=== PATIENT | female | born 1985 | race Caucasian/White ===

== ENCOUNTER 2020-05-23 17:38 | Emergency (ER) | payer OTHER ==
[~2020-05-23] VITALS: Ht 165.1 cm; Wt 56.7 kg
[2020-05-23 18:00] VITALS: BP 95/70
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
[2020-05-23] MEDS: Acetaminophen 500mg (ES) tab ORAL ONE (18:40)
[2020-05-23] MEDS: Methocarbamol 750mg tab ORAL ONE (18:40)
[2020-05-23] MEDS ORDERED: ROBAXIN-750750 MG PO (18:58)
[2020-05-23] MEDS ORDERED: LIDODERM700 M1 TOPIC (18:58)
[2020-05-23] MEDS ORDERED: TYLENOL EXTRA500 MG ORAL (18:58)
[2020-05-23 19:10] VITALS: BP 100/78
--- NOTE | 2020-05-23 19:10 | NUR ---
ER DISCHARGE NOTE: Patient is cleared to be discharged per ERMD, pt is aox4, on room air, with stable vital signs. pt was given dc and prescription instructions, pt was able to verbalize understanding, pt id band removed. pt is able to ambulate with steady gait. pt took all belongings.
== END 2020-05-23 19:10 | disposition home or self-care (01) ==
LOC: EMR 18:05
DX: S16.1XXA Strain of muscle, fascia and tendon at neck level, initial encounter (principal); S70.02XA Contusion of left hip, initial encounter; F07.81 Postconcussional syndrome; T14.8XXA Other injury of unspecified body region, initial encounter; V43.52XA Car driver injured in collision with other type car in traffic accident, initial encounter; Y93.9 Activity, unspecified; Y92.411 Interstate highway as the place of occurrence of the external cause
CPT/HCPCS: 99282